=== PATIENT | male | born 1960 | race Caucasian/White ===

== ENCOUNTER 2018-10-31 19:54 | Emergency (ER) | payer OTHER ==
[~2018-10-31] VITALS: Ht 175.3 cm; Wt 100.0 kg
[~2018-10-31 19:54] MED LIST: ONDA8TAB9 PO
[2018-10-31 20:00] VITALS: BP 172/94
== END 2018-10-31 23:01 | disposition home or self-care (01) ==
LOC: ER 19:54
DX: S81.012A Laceration without foreign body, left knee, initial encounter (principal); E78.00 Pure hypercholesterolemia, unspecified; I10 Essential (primary) hypertension; G89.29 Other chronic pain; Z79.899 Other long term (current) drug therapy; W26.8XXA Contact with other sharp object(s), not elsewhere classified, initial encounter; Y93.89 Activity, other specified; Y92.89 Other specified places as the place of occurrence of the external cause; Y99.8 Other external cause status
CPT/HCPCS: 12002; 99283

== ENCOUNTER 2019-09-22 01:23 | Outpatient (CLI) | payer SELFPAY ==
[2019-09-22 09:58] LABS: CHOL/HDL RATIO 5.8 (0.00-4.99)
[2019-09-22 10:51] LABS: HEMOGLOBIN A1C 5.5 % (4.5-6.2)
== END 2019-09-22 23:59 | disposition home or self-care (01) ==
LOC: HW HEART 01:23
DX: Z13.6 Encounter for screening for cardiovascular disorders (principal)
CPT/HCPCS: 36415

== ENCOUNTER 2019-09-22 08:48 | Outpatient (CLI) | payer OTHER ==
[2019-09-22 09:29] LABS: MEAN CORPUSCULAR VOLUME 99.1 FL (78-98); WHITE BLOOD COUNT 5.3 X10'3 (4.5-11.0)
[2019-09-22 09:31] LABS: BASOPHILS # (AUTO) 0.1 X10'3 (0-0.2); BASOPHILS % (AUTO) 1.4 % (0-1); EOSINOPHILS # (AUTO) 0.4 X10'3 (0-0.9); EOSINOPHILS % (AUTO) 8.5 % (0-6); HEMATOCRIT 42.1 % (42.0-52.0); HEMOGLOBIN 14.7 g/dl (14.0-17.9); LYMPHOCYTES # (AUTO) 1.7 X10'3 (1.1-4.8); MEAN CORPUSCULAR HEMOGLOBIN 34.5 PG (27.0-31.0); MEAN CORPUSCULAR HGB CONC 34.8 g/dL (33.0-36.5); MEAN PLATELET VOLUME 7.5 FL (7.4-10.4); MONOCYTES # (AUTO) 0.4 X10'3 (0-0.9); MONOCYTES % (AUTO) 6.8 % (2-12); NEUTROPHILS # (AUTO) 2.7 X10'3 (1.8-7.7); NEUTROPHILS % (AUTO) 51.3 % (42-75); PLATELET COUNT 248 X10'3 (140-440); RED BLOOD COUNT 4.25 X10'6 (4.70-6.10); RED CELL DISTRIBUTION WIDTH 12.3 % (11.5-14.5)
[2019-09-22 11:16] LABS: ALANINE AMINOTRANSFERASE 58 U/L (12-78); ALBUMIN 3.8 G/DL (3.4-5.0); ALBUMIN/GLOBULIN RATIO 1.2 (1.1-1.5); ALKALINE PHOSPHATASE 84 IU/L (46-116); ANION GAP 10 (8-16); ASPARTATE AMINO TRANSFERASE 26 U/L (10-37); BILIRUBIN,TOTAL 0.7 MG/DL (0.1-1.0); BLOOD UREA NITROGEN 19 MG/DL (7-18); BUN/CREATININE RATIO 20.4 (5.4-32.0); CALCIUM 8.6 MG/DL (8.5-10.1); CHLORIDE 106 MMOL/L (99-107); CREATININE 0.93 MG/DL (0.60-1.10); GLUCOSE 106 MG/DL (70-104); POTASSIUM 4.3 MMOL/L (3.5-5.1); SODIUM 141 MMOL/L (135-145); TOTAL CARBON DIOXIDE 25.5 MMOL/L (24-32); TOTAL PROTEIN 7.1 G/DL (6.4-8.2); eGFR 83 ML/MIN
[2019-09-22 12:19] LABS: CLARITY,URINE CLEAR (Clear); COLOR,URINE YELLOW (Yellow); GLUCOSE, URINE NEGATIVE (Neg); KETONES,URINE NEGATIVE (Neg); LEUKOCYTE ESTERASE ,URINE NEGATIVE (Neg); NITRITES, URINE NEGATIVE (Neg); OCCULT BLOOD,URINE TRACE-INTACT (Neg); PROTEIN,URINE NEGATIVE (Neg); UA COLLECTION TYPE VOIDED; UROBILINOGEN,URINE 0.2 E.U/dL (0.2-1.0)
[2019-09-22 12:27] LABS: SQUAMOUS EPITHELIAL CELL,UR FEW /LPF (FEW)
[2019-09-22 12:29] LABS: BACTERIA,URINE FEW /HPF (Neg); RBC,URINE 0-2 /HPF (0-2); WBC,URINE 0-4 /HPF (0-4)
== END 2019-09-22 23:59 | disposition home or self-care (01) ==
LOC: LAB 08:48
PROVIDERS: ATTEND Family Medicine
DX: I10 Essential (primary) hypertension (principal)
CPT/HCPCS: 36415; 80053; 81001; 84402; 84403; 84439; 84443; 85025

== ENCOUNTER 2019-11-09 11:43 | Inpatient (IN) | payer OTHER ==
[~2019-11-09] VITALS: Ht 175.3 cm; Wt 102.7 kg
[2019-11-09 12:29] LABS: BASOPHILS # (AUTO) 0.1 X10'3 (0-0.2); BASOPHILS % (AUTO) 0.9 % (0-1); EOSINOPHILS # (AUTO) 0.3 X10'3 (0-0.9); EOSINOPHILS % (AUTO) 4.5 % (0-6); HEMOGLOBIN 15.9 g/dl (14.0-17.9); LYMPHOCYTES # (AUTO) 2.2 X10'3 (1.1-4.8); LYMPHOCYTES % (AUTO) 32.5 % (21-51); MEAN CORPUSCULAR HEMOGLOBIN 34.5 PG (27.0-31.0); MEAN CORPUSCULAR HGB CONC 34.5 g/dL (33.0-36.5); MEAN PLATELET VOLUME 7.2 FL (7.4-10.4); MONOCYTES # (AUTO) 0.5 X10'3 (0-0.9); MONOCYTES % (AUTO) 7.8 % (2-12); NEUTROPHILS # (AUTO) 3.7 X10'3 (1.8-7.7); NEUTROPHILS % (AUTO) 54.3 % (42-75); PLATELET COUNT 265 X10'3 (140-440); RED CELL DISTRIBUTION WIDTH 12.9 % (11.5-14.5); WHITE BLOOD COUNT 6.8 X10'3 (4.5-11.0)
[2019-11-09] MEDS ORDERED: aspirin 81mg tab.chew PO ONE (12:50)
[2019-11-09] MEDS ORDERED: nitroGLYCERIN 0.4mg SUBLingual tab SL PRN ×2 (12:50→15:05)
[2019-11-09 13:02] LABS: ALANINE AMINOTRANSFERASE 61 U/L (12-78); ALBUMIN 4.1 G/DL (3.4-5.0); ALBUMIN/GLOBULIN RATIO 1.1 (1.1-1.5); ALKALINE PHOSPHATASE 86 IU/L (46-116); ANION GAP 4 (8-16); ASPARTATE AMINO TRANSFERASE 28 U/L (10-37); BILIRUBIN,TOTAL 0.5 MG/DL (0.1-1.0); BLOOD UREA NITROGEN 25 MG/DL (7-18); BUN/CREATININE RATIO 23.6 (5.4-32.0); CALCIUM 9.2 MG/DL (8.5-10.1); CHLORIDE 103 MMOL/L (99-107); CREATININE 1.06 MG/DL (0.60-1.10); GLUCOSE 107 MG/DL (70-104); POTASSIUM 4.3 MMOL/L (3.5-5.1); SODIUM 137 MMOL/L (135-145); TOTAL PROTEIN 7.7 G/DL (6.4-8.2); eGFR 72 ML/MIN
[2019-11-09] MEDS ORDERED: metoprolol tartrate 1mg/ml inj IV ONE (13:25)
[2019-11-09] MEDS ORDERED: DEXT20TA6 PO (13:36)
[2019-11-09] MEDS ORDERED: DULO60CA65 PO (13:36)
[2019-11-09] MEDS ORDERED: RAMI10CA69 PO (13:36)
[2019-11-09] MEDS ORDERED: LORazepam 1 MG tablet PO ONE (14:25)
[2019-11-09 15:00] VITALS: BP 110/42
[2019-11-09] MEDS ORDERED: atorvastatin 20mg tablet PO STA (15:04)
[2019-11-09] MEDS ORDERED: aminophylline 250mg/10ml inj. IV PRN (15:05)
[2019-11-09] MEDS ORDERED: regadenoson 0.4mg/5ml syringe IV ONE (15:05)
[2019-11-09] MEDS ORDERED: magnesium 4gm in 100ml NS 100 ML IV PRN (15:15)
[2019-11-09] MEDS ORDERED: magnesium 2GM in 50ml NS 50 ML IV PRN (15:15)
[2019-11-09] MEDS ORDERED: mag hydrox/Alum hydrox/simeth 30ml oral suspension PO PRN (15:15)
[2019-11-09] MEDS ORDERED: ondansetron/PF 4mg/2ml inj IV PRN (15:15)
[2019-11-09] MEDS ORDERED: acetaminophen 325mg tablet PO PRN ×2 (15:15)
[2019-11-09] MEDS ORDERED: potassium Cl 20 mEq SR tablet PO PRN ×2 (15:15)
[2019-11-09] MEDS ORDERED: potassium CL 10mEq/100ml bag 100 ML IV PRN ×2 (15:15)
[2019-11-09] MEDS ORDERED: iohexol 350MG/ML 100ml bottle IV ONE (15:25)
--- NOTE | 2019-11-09 15:27 | NUR ---
PT TO CT
[2019-11-09] MEDS: normal saline 1000ml 1,000 ML IV SCH (15:31)
--- NOTE | 2019-11-09 15:59 | NUR ---
Patient in room ED 2. I have received report from ROCKY Nagy in ED and had the opportunity to ask questions.
[2019-11-09 16:10] VITALS: BP 141/92
--- NOTE | 2019-11-09 16:10 | NUR ---
Patient arrived from Ed, ambulated self to bed. Oriented to room. Non skid socks on. Bed locked and lowered. Hooked up to NS 100ml/hr per MD orders. Call light within reach, 2 RN skin check complete, first set of vitals done: BP141/92, HR 65, R 18, Temp 98.4, Pain 0/10. All patient's needs met at this time.
--- NOTE | 2019-11-09 18:15 | NUR ---
Patient in room [facility] 3010. I have received report from Christelle Rodriguez RN and had the opportunity to ask questions and assume patient care. Addendum: 11/10/19 at 0619 by Cheyenne Frost RN Report from Christelle Hidalgo RN.
--- NOTE | 2019-11-09 18:48 | NUR ---
Problems reprioritized. Patient report given, questions answered & plan of care reviewed with ROCKY Quinn. All patient needs met at this time.
[2019-11-09 19:00] VITALS: BP 132/89
[2019-11-09 20:00] VITALS: BP_SYST 137; BP_SYST 139; BP_SYST 163; BP_DIAS 90; BP_DIAS 97
[2019-11-09] MEDS: K and/or MAG REPLACEMENT MC SCH (20:00)
[2019-11-09] MEDS: docusate sod 100mg capsule PO SCH (20:00)
[2019-11-09] MEDS: heparin, porcine 5000 units/ml vial SQ SCH (22:15)
[2019-11-10] VITALS (11 sets, daily range): BP systolic 101–145; BP diastolic 65–97
[2019-11-10] MEDS: normal saline 1000ml 1,000 ML IV SCH (01:12)
[2019-11-10 01:18] LABS: BASOPHILS % (AUTO) 0.6 % (0-1); EOSINOPHILS # (AUTO) 0.3 X10'3 (0-0.9); EOSINOPHILS % (AUTO) 4.3 % (0-6); HEMATOCRIT 43.6 % (42.0-52.0); HEMOGLOBIN 15.2 g/dl (14.0-17.9); LYMPHOCYTES # (AUTO) 2.6 X10'3 (1.1-4.8); LYMPHOCYTES % (AUTO) 34.8 % (21-51); MEAN CORPUSCULAR HEMOGLOBIN 34.9 PG (27.0-31.0); MEAN CORPUSCULAR HGB CONC 34.8 g/dL (33.0-36.5); MEAN CORPUSCULAR VOLUME 100.4 FL (78-98); MEAN PLATELET VOLUME 7.5 FL (7.4-10.4); MONOCYTES # (AUTO) 0.5 X10'3 (0-0.9); MONOCYTES % (AUTO) 7.2 % (2-12); NEUTROPHILS # (AUTO) 3.9 X10'3 (1.8-7.7); NEUTROPHILS % (AUTO) 53.1 % (42-75); PLATELET COUNT 248 X10'3 (140-440); RED BLOOD COUNT 4.35 X10'6 (4.70-6.10); RED CELL DISTRIBUTION WIDTH 12.8 % (11.5-14.5); WHITE BLOOD COUNT 7.4 X10'3 (4.5-11.0)
[2019-11-10 01:32] LABS: ALANINE AMINOTRANSFERASE 51 U/L (12-78); ALBUMIN 3.6 G/DL (3.4-5.0); ALBUMIN/GLOBULIN RATIO 1.1 (1.1-1.5); ALKALINE PHOSPHATASE 78 IU/L (46-116); ANION GAP 6 (8-16); ASPARTATE AMINO TRANSFERASE 29 U/L (10-37); BILIRUBIN,TOTAL 0.4 MG/DL (0.1-1.0); BLOOD UREA NITROGEN 19 MG/DL (7-18); BUN/CREATININE RATIO 18.3 (5.4-32.0); CALCIUM 8.9 MG/DL (8.5-10.1); CHLORIDE 105 MMOL/L (99-107); CREATININE 1.04 MG/DL (0.60-1.10); GLUCOSE 100 MG/DL (70-104); POTASSIUM 3.7 MMOL/L (3.5-5.1); SODIUM 139 MMOL/L (135-145); TOTAL CARBON DIOXIDE 27.6 MMOL/L (24-32); eGFR 73 ML/MIN
--- NOTE | 2019-11-10 06:13 | NUR ---
Patient in room [facility] 3010. I have received report from ROCKY Quinn and had the opportunity to ask questions and assume patient care.
--- NOTE | 2019-11-10 06:17 | NUR ---
Problems reprioritized. Patient report given, questions answered & plan of care reviewed with Christelle Rodriguez RN. Addendum: 11/10/19 at 0618 by Cheyenne Frost RN Report to Christelle Hidalgo RN
[2019-11-10] MEDS: K and/or MAG REPLACEMENT MC SCH (08:00)
[2019-11-10] MEDS: docusate sod 100mg capsule PO SCH (08:00)
[2019-11-10] MEDS ORDERED: atorvastatin 20mg tablet PO SCH (08:00)
[2019-11-10] MEDS: heparin, porcine 5000 units/ml vial SQ SCH (09:00)
[2019-11-10] MEDS ORDERED: TEST200V10 IM (12:14)
[2019-11-10] MEDS ORDERED: ATOR20TA66 PO (13:28)
[2019-11-10] MEDS ORDERED: LEVO25TA7 PO (13:28)
--- NOTE | 2019-11-10 14:00 | NUR ---
Student documentation: I have reviewed and agree with all interventions, assessments performed and documented by Elvi from [facility].
--- NOTE | 2019-11-10 14:15 | NUR ---
Patient stable for discharge per MD orders. All instructions were gone over with patient and , all questions were answered. All belongings were collected and sent with patient. Patient will follow up with primary care provider in 2 week, and was informed to have a cholesterol panel, and also was informed to keep a log of blood pressures sitting and resting to take to the doctor appointment. PIV discontinued, cannula intact. Tele monitor discontinued, radiotelegraph operator notified. New prescriptions were e-sent to [facility] on [facility]. [facility] by .
--- NOTE | 2019-11-10 15:42 | NUR ---
Student Medication Administration: For this medication-pass time frame, all medication were reviewed, dispensed, administered and documented per hospital policy by Elvi from [facility].
== END 2019-11-10 14:15 | disposition home or self-care (01) | DRG 305 ==
LOC: ER 11:44 → ED HOLD 15:12 → PCU 3S 16:10
PROVIDERS: ADMIT Family Medicine; ATTEND Family Medicine
PROC: B3251ZZ Computerized Tomography (CT Scan) of Bilateral Common Carotid Arteries using Low Osmolar Contrast (ICD-10-PCS; principal; 2019-11-09)
PROC: B32G1ZZ Computerized Tomography (CT Scan) of Bilateral Vertebral Arteries using Low Osmolar Contrast (ICD-10-PCS; 2019-11-09)
PROC: B3281ZZ Computerized Tomography (CT Scan) of Bilateral Internal Carotid Arteries using Low Osmolar Contrast (ICD-10-PCS; 2019-11-09)
PROC: 4A02XM4 Measurement of Cardiac Total Activity, External Approach (ICD-10-PCS; 2019-11-10)
DX: I16.1 Hypertensive emergency (principal); R47.01 Aphasia; R55 Syncope and collapse; E03.9 Hypothyroidism, unspecified; E78.00 Pure hypercholesterolemia, unspecified; E29.0 Testicular hyperfunction; E78.5 Hyperlipidemia, unspecified; F90.9 Attention-deficit hyperactivity disorder, unspecified type; I10 Essential (primary) hypertension; I20.9 Angina pectoris, unspecified; G89.29 Other chronic pain; M54.9 Dorsalgia, unspecified; Z80.0 Family history of malignant neoplasm of digestive organs; Z79.899 Other long term (current) drug therapy
CPT/HCPCS: 36415; 70496; 70498; 70551; 71045; 78452; 80053; 83605; 83735; 83880; 84443; 84484; 85025; 85651; 87040; 87081; 93005; 93017; 93306; A9500; G0378; J1644; J2785; J3490; J7030; Q9967

== ENCOUNTER 2020-02-07 11:35 | Outpatient (CLI) | payer OTHER ==
[~2020-02-07 11:35] MED LIST changes: +ATOR20TA66 PO; +DULO60CA65 PO; +LEVO25TA7 PO; -ONDA8TAB9 PO; +RAMI10CA69 PO
== END 2020-02-07 23:59 | disposition home or self-care (01) ==
LOC: LAB 11:35
PROVIDERS: ATTEND Family Medicine
DX: Z00.00 Encounter for general adult medical examination without abnormal findings (principal)
CPT/HCPCS: 36415; 84439; 84443

== ENCOUNTER 2021-03-23 19:33 | Emergency (ER) | payer BC, OTHER ==
[~2021-03-23] VITALS: Ht 175.3 cm; Wt 100.0 kg
[2021-03-23 19:43] VITALS: BP 178/111
[2021-03-23 19:51] LABS: BASOPHILS # (AUTO) 0.1 X10'3 (0-0.2); EOSINOPHILS # (AUTO) 0.1 X10'3 (0-0.9); LYMPHOCYTES # (AUTO) 2.4 X10'3 (1.1-4.8); MEAN CORPUSCULAR HEMOGLOBIN 36.4 PG (27.0-31.0); MEAN PLATELET VOLUME 7.4 FL (7.4-10.4); MONOCYTES # (AUTO) 0.6 X10'3 (0-0.9); WHITE BLOOD COUNT 9.3 X10'3 (4.5-11.0)
[2021-03-23 19:53] LABS: BASOPHILS % (AUTO) 0.7 % (0-1); EOSINOPHILS % (AUTO) 1.6 % (0-6); HEMATOCRIT 50.9 % (42.0-52.0); HEMOGLOBIN 17.3 g/dl (14.0-17.9); LYMPHOCYTES % (AUTO) 26.4 % (21-51); MONOCYTES % (AUTO) 6.2 % (2-12); NEUTROPHILS % (AUTO) 65.1 % (42-75); PLATELET COUNT 278 X10'3 (140-440); RED BLOOD COUNT 4.76 X10'6 (4.70-6.10); RED CELL DISTRIBUTION WIDTH 13.9 % (11.5-14.5)
[2021-03-23 20:06] LABS: ALANINE AMINOTRANSFERASE 63 U/L (12-78); ALKALINE PHOSPHATASE 96 IU/L (46-116); ANION GAP 8 (8-16); ASPARTATE AMINO TRANSFERASE 34 U/L (10-37); BILIRUBIN,TOTAL 0.8 MG/DL (0.1-1.0); BLOOD UREA NITROGEN 16 MG/DL (7-18); BUN/CREATININE RATIO 14.3 (5.4-32.0); CALCIUM 8.8 MG/DL (8.5-10.1); CHLORIDE 100 MMOL/L (99-107); CREATININE 1.12 MG/DL (0.60-1.10); GLUCOSE 146 MG/DL (70-104); POTASSIUM 3.6 MMOL/L (3.5-5.1); SODIUM 136 MMOL/L (135-145); TOTAL CARBON DIOXIDE 27.9 MMOL/L (24-32); TOTAL PROTEIN 7.9 G/DL (6.4-8.2); eGFR 67 ML/MIN
[2021-03-23] MEDS ORDERED: ondansetron/PF 4mg/2ml inj IV ONE (20:10)
[2021-03-23] MEDS ORDERED: normal saline 1000ml 1,000 ML IV ONE (20:10)
[2021-03-23] MEDS ORDERED: LORazepam 2 mg/ml vial IV ONE (20:10)
[2021-03-23] MEDS ORDERED: normal saline 1000ML IV soln IVB ONE (20:10)
[2021-03-23] MEDS ORDERED: ONDA4TAB12 PO ×2 (21:04→21:06)
[2021-03-23] MEDS ORDERED: MECL-159 PO (21:06)
[2021-03-24] MEDS ORDERED: AMLO2.5T2 PO (20:45)
== END 2021-03-23 22:33 | disposition home or self-care (01) ==
LOC: ER 19:34
DX: E86.0 Dehydration (principal); R42 Dizziness and giddiness; R11.2 Nausea with vomiting, unspecified; R07.89 Other chest pain; E78.00 Pure hypercholesterolemia, unspecified; I10 Essential (primary) hypertension; G89.29 Other chronic pain; Z72.89 Other problems related to lifestyle; Z79.899 Other long term (current) drug therapy
CPT/HCPCS: 70450; 71045; 80053; 83735; 83880; 84484; 85025; 93005; 96361; 96374; 96375; 99285; J2060; J2405; J7030

== ENCOUNTER 2021-03-24 16:47 | Emergency (ER) | payer BC ==
[~2021-03-24] VITALS: Ht 175.3 cm; Wt 100.0 kg
[~2021-03-24 16:47] MED LIST changes: +MECL-159 PO; +ONDA4TAB12 PO
--- NOTE | 2021-03-24 19:14 | NUR ---
PT TO MRI
[2021-03-24] MEDS ORDERED: AMLO2.5T2 PO (20:45)
[2021-03-24 20:56] VITALS: BP 146/95
== END 2021-03-24 20:59 | disposition home or self-care (01) ==
LOC: ER 16:47
DX: I10 Essential (primary) hypertension (principal); H55.00 Unspecified nystagmus; G89.29 Other chronic pain; M54.9 Dorsalgia, unspecified; E78.00 Pure hypercholesterolemia, unspecified
CPT/HCPCS: 70551; 99284

== ENCOUNTER 2021-09-30 08:04 | Outpatient (CLI) | payer BC ==
[2021-09-30 08:54] LABS: BASOPHILS # (AUTO) 0.1 X10'3 (0-0.2); BASOPHILS % (AUTO) 0.9 % (0-1); EOSINOPHILS # (AUTO) 0.2 X10'3 (0-0.9); EOSINOPHILS % (AUTO) 2.5 % (0-6); HEMATOCRIT 45.4 % (42.0-52.0); HEMOGLOBIN 15.9 g/dl (14.0-17.9); LYMPHOCYTES # (AUTO) 1.7 X10'3 (1.1-4.8); LYMPHOCYTES % (AUTO) 28.5 % (21-51); MEAN PLATELET VOLUME 7.5 FL (7.4-10.4); MONOCYTES # (AUTO) 0.4 X10'3 (0-0.9); MONOCYTES % (AUTO) 7.2 % (2-12); NEUTROPHILS # (AUTO) 3.7 X10'3 (1.8-7.7); NEUTROPHILS % (AUTO) 60.9 % (42-75); PLATELET COUNT 228 X10'3 (140-440); RED CELL DISTRIBUTION WIDTH 12.8 % (11.5-14.5)
[2021-09-30 09:07] LABS: CLARITY,URINE CLEAR (Clear); COLOR,URINE YELLOW (Yellow); GLUCOSE, URINE NEGATIVE (Neg); KETONES,URINE NEGATIVE (Neg); LEUKOCYTE ESTERASE ,URINE NEGATIVE (Neg); NITRITES, URINE NEGATIVE (Neg); OCCULT BLOOD,URINE SMALL (Neg); PROTEIN,URINE TRACE mg/dl (Neg); UROBILINOGEN,URINE 0.2 E.U/dL (0.2-1.0)
[2021-09-30 09:10] LABS: UA COLLECTION TYPE CLN CATCH MIDSTREAM
[2021-09-30 09:13] LABS: BACTERIA,URINE NONE SEEN /HPF (Neg); RBC,URINE 0-2 /HPF (0-2); SQUAMOUS EPITHELIAL CELL,UR NONE SEEN /LPF (FEW); WBC,URINE NONE SEEN /HPF (0-4)
[2021-09-30 09:24] LABS: ALANINE AMINOTRANSFERASE 50 U/L (12-78); ALBUMIN 3.7 G/DL (3.4-5.0); ALKALINE PHOSPHATASE 90 IU/L (46-116); ANION GAP 0 (8-16); ASPARTATE AMINO TRANSFERASE 26 U/L (10-37); BILIRUBIN,TOTAL 0.6 MG/DL (0.1-1.0); BLOOD UREA NITROGEN 17 MG/DL (7-18); BUN/CREATININE RATIO 17.2 (5.4-32.0); CALCIUM 8.7 MG/DL (8.5-10.1); CHLORIDE 100 MMOL/L (99-107); CHOL/HDL RATIO 5.5 (0.00-4.99); CHOLESTEROL 264 MG/DL (0-200); CREATININE 0.99 MG/DL (0.60-1.10); GLUCOSE 121 MG/DL (70-104); HDL CHOLESTEROL 48 MG/DL (35-60); LDL CHOLESTEROL 173 MG/DL (50-100); SODIUM 131 MMOL/L (135-145); TOTAL CARBON DIOXIDE 30.7 MMOL/L (24-32); TOTAL PROTEIN 7.3 G/DL (6.4-8.2); TRIGLYCERIDES 165 MG/DL (20-135); eGFR 77 ML/MIN
== END 2021-09-30 23:59 | disposition home or self-care (01) ==
LOC: LAB 08:04
PROVIDERS: ATTEND Family Medicine
DX: Z00.01 Encounter for general adult medical examination with abnormal findings (principal); I10 Essential (primary) hypertension; E29.1 Testicular hypofunction; E34.9 Endocrine disorder, unspecified
CPT/HCPCS: 36415; 80053; 80061; 81001; 84402; 84403; 84439; 84443; 85025

== ENCOUNTER 2021-11-14 10:39 | Emergency (ER) | payer BC ==
[~2021-11-14] VITALS: Ht 175.3 cm; Wt 110.0 kg
[2021-11-14 11:05] LABS: BASOPHILS # (AUTO) 0.1 X10'3 (0-0.2); BASOPHILS % (AUTO) 0.6 % (0-1); EOSINOPHILS # (AUTO) 0.2 X10'3 (0-0.9); EOSINOPHILS % (AUTO) 1.1 % (0-6); HEMATOCRIT 44.5 % (42.0-52.0); HEMOGLOBIN 15.2 g/dl (14.0-17.9); LYMPHOCYTES # (AUTO) 1.9 X10'3 (1.1-4.8); LYMPHOCYTES % (AUTO) 13.3 % (21-51); MEAN CORPUSCULAR HEMOGLOBIN 34.4 PG (27.0-31.0); MEAN CORPUSCULAR HGB CONC 34.1 g/dL (33.0-36.5); MEAN CORPUSCULAR VOLUME 100.8 FL (78-98); MEAN PLATELET VOLUME 7.2 FL (7.4-10.4); MONOCYTES # (AUTO) 0.7 X10'3 (0-0.9); MONOCYTES % (AUTO) 4.8 % (2-12); NEUTROPHILS # (AUTO) 11.4 X10'3 (1.8-7.7); NEUTROPHILS % (AUTO) 80.2 % (42-75); PLATELET COUNT 256 X10'3 (140-440); RED BLOOD COUNT 4.41 X10'6 (4.70-6.10); RED CELL DISTRIBUTION WIDTH 12.9 % (11.5-14.5); WHITE BLOOD COUNT 14.2 X10'3 (4.5-11.0)
[2021-11-14 11:28] LABS: ALANINE AMINOTRANSFERASE 43 U/L (12-78); ALBUMIN 3.5 G/DL (3.4-5.0); ALBUMIN/GLOBULIN RATIO 0.8 (1.1-1.5); ALKALINE PHOSPHATASE 88 IU/L (46-116); ANION GAP 8 (8-16); ASPARTATE AMINO TRANSFERASE 22 U/L (10-37); BILIRUBIN,TOTAL 1.5 MG/DL (0.1-1.0); BLOOD UREA NITROGEN 13 MG/DL (7-18); BUN/CREATININE RATIO 11.9 (5.4-32.0); CHLORIDE 101 MMOL/L (99-107); CREATININE 1.09 MG/DL (0.60-1.10); GLUCOSE 101 MG/DL (70-104); POTASSIUM 3.7 MMOL/L (3.5-5.1); SODIUM 139 MMOL/L (135-145); TOTAL PROTEIN 7.9 G/DL (6.4-8.2); eGFR 69 ML/MIN
[2021-11-14 11:32] LABS: CALCIUM 8.8 MG/DL (8.5-10.1)
[2021-11-14] MEDS ORDERED: normal saline 1000ML IV soln IVB ONE (11:35)
[2021-11-14 11:36] LABS: LIPASE 1723 U/L (73-393)
[2021-11-14] MEDS ORDERED: iohexol 300mg/ml 100ml inj. ONE (11:51)
[2021-11-14 11:57] VITALS: BP 132/89
--- NOTE | 2021-11-14 12:04 | NUR ---
PIV STARTED, PT TO CT.
[2021-11-14] MEDS ORDERED: ketorolac trometh. 30mg/ml inj. IV ONE (12:15)
[2021-11-14] MEDS ORDERED: morphine 4 MG/ML inj SYRINge IV ONE (12:15)
--- NOTE | 2021-11-14 12:17 | NUR ---
RETURNED FROM CT WITHOUT INCIDENT.
[2021-11-14] MEDS ORDERED: piperacillin/tazo 3.375gm/50ml 50 ML IV ONE (12:45)
[2021-11-14] MEDS ORDERED: AMOX-117 PO (12:55)
[2021-11-14] MEDS ORDERED: ONDA4TAB12 PO (12:55)
[2021-11-14] MEDS ORDERED: HYDR-3965 PO (12:55)
== END 2021-11-14 14:10 | disposition home or self-care (01) ==
LOC: ER 10:39
DX: K57.92 Diverticulitis of intestine, part unspecified, without perforation or abscess without bleeding (principal); K85.90 Acute pancreatitis without necrosis or infection, unspecified; R10.31 Right lower quadrant pain; R30.9 Painful micturition, unspecified; R11.0 Nausea; E78.00 Pure hypercholesterolemia, unspecified; I10 Essential (primary) hypertension; G89.29 Other chronic pain; Z72.89 Other problems related to lifestyle; Z79.2 Long term (current) use of antibiotics; Z79.899 Other long term (current) drug therapy
CPT/HCPCS: 36415; 71045; 74177; 80053; 83690; 85025; 93005; 96365; 96375; 99285; J1885; J2270; J2543; J7030; Q9967

== ENCOUNTER 2022-02-04 16:43 | Emergency (ER) | payer BC ==
[~2022-02-04] VITALS: Ht 175.3 cm; Wt 105.0 kg
[2022-02-04 16:48] VITALS: BP 140/92
[2022-02-04] MEDS ORDERED: HYDROcodone/acetaminophen 10/325mg tab PO ONE (19:15)
[2022-02-04] MEDS ORDERED: HYDR-3965 PO (19:40)
== END 2022-02-04 19:56 | disposition home or self-care (01) ==
LOC: ER 16:44
DX: S82.832A Other fracture of upper and lower end of left fibula, initial encounter for closed fracture (principal); S02.85XA Fracture of orbit, unspecified, initial encounter for closed fracture; S89.92XA Unspecified injury of left lower leg, initial encounter; E78.00 Pure hypercholesterolemia, unspecified; I10 Essential (primary) hypertension; G89.29 Other chronic pain; Z72.89 Other problems related to lifestyle; Z79.899 Other long term (current) drug therapy; V89.2XXA Person injured in unspecified motor-vehicle accident, traffic, initial encounter; Y93.89 Activity, other specified; Y92.488 Other paved roadways as the place of occurrence of the external cause; Y99.8 Other external cause status
CPT/HCPCS: 73700; 99284

== ENCOUNTER → 2022-02-12 | Day surgery (SDC) | payer BC ==
[~2022-02-12] VITALS: Ht 175.3 cm; Wt 94.5 kg
[2022-02-12] VITALS (10 sets, daily range): BP systolic 86–129; BP diastolic 51–84
[~2022-02-12] MED LIST changes: -ATOR20TA66 PO; +DULO-31 PO; -DULO60CA65 PO; +HYDR12.55 PO; -LEVO25TA7 PO; -MECL-159 PO; -ONDA4TAB12 PO; +ROPIVAcaine 0.5% (5mg/ml) 30ml vial ONE; +bacitracin 15gm ointment TP ONE; +ceFAZolin inj. 2,000 MG in dextrose 5%-water 100 ML IV ONE; +dexamethasone sod phosphate 10mg/ml inj ONE; +ePHEDrine 50MG/ML INJ. ONE; +famotidine 20mg tablet PO ONE; +fentaNYL/PF 50MCG/1 ML 2ML syringe ONE; +meperidine/PF 25mg/ml syringe IV PRN; +midazolam 1 mg/ML 2ml injection ONE; +morphine 2 MG/ML inj. syringe IV PRN; +morphine 4 MG/ML inj SYRINge IV PRN; +ondansetron/PF 4mg/2ml inj IV PRN; +ondansetron/PF 4mg/2ml inj ONE; +proCHLORperazine 10 MG/2 ml inj IV PRN; +propofol inj 20 ML IV ONE; +ringers solution, lacted 1,000 ML IV SCH; +sevoflurane 250ml liquid IH ONE; +vancomycin 1,000mg inj ONE
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
[2022-02-12 13:41] LABS: ALBUMIN 3.7 G/DL (3.4-5.0); ALBUMIN/GLOBULIN RATIO 0.8 (1.1-1.5); ALKALINE PHOSPHATASE 95 IU/L (46-116); BASOPHILS # (AUTO) 0.1 X10'3 (0-0.2); BASOPHILS % (AUTO) 1.3 % (0-1); BLOOD UREA NITROGEN 26 MG/DL (7-18); BUN/CREATININE RATIO 22.8 (5.4-32.0); CALCIUM 9.1 MG/DL (8.5-10.1); CHLORIDE 102 MMOL/L (99-107); CREATININE 1.14 MG/DL (0.60-1.10); EOSINOPHILS # (AUTO) 0.1 X10'3 (0-0.9); EOSINOPHILS % (AUTO) 1.3 % (0-6); LYMPHOCYTES % (AUTO) 21.3 % (21-51); MEAN CORPUSCULAR HEMOGLOBIN 33.9 PG (27.0-31.0); MEAN CORPUSCULAR HGB CONC 34.1 g/dL (33.0-36.5); MEAN CORPUSCULAR VOLUME 99.6 FL (78-98); MEAN PLATELET VOLUME 7.5 FL (7.4-10.4); MONOCYTES # (AUTO) 0.6 X10'3 (0-0.9); MONOCYTES % (AUTO) 6.6 % (2-12); NEUTROPHILS # (AUTO) 6.6 X10'3 (1.8-7.7); NEUTROPHILS % (AUTO) 69.5 % (42-75); PRE OP ALT 40 U/L (30-65); PRE OP ANION GAP 9 (8-16); PRE OP AST 28 U/L (10-37); PRE OP BILIRUB, TOTAL 0.8 MG/DL (0.0-1.0); PRE OP GLUCOSE 99 MG/DL (70-104); PRE OP HEMATOCRIT 40.9 % (42.0-52.0); PRE OP HEMOGLOBIN 13.9 g/dL (14.0-17.9); PRE OP PLATELET COUNT 474 X10'3 (140-440); PRE OP SODIUM 138 MMOL/L (135-145); RED BLOOD COUNT 4.11 X10'6 (4.70-6.10); TOTAL CARBON DIOXIDE 27.4 MMOL/L (24-32); TOTAL PROTEIN 8.1 G/DL (6.4-8.2); eGFR 65 ML/MIN
[2022-02-12 13:51] LABS: PRE OP POTASSIUM 4.4 MMOL/L (3.4-5.1)
--- NOTE | 2022-02-12 17:20 | NUR ---
Received from OR via [facility] , accompanied by Anesthesiologist: DR WHALEN and report given by Anesthesiolgist. VSS, IV IN LEFT HAND 20G. DRESSING WITH NOLVIA BANDAGE ON LEFT ANKLE AND FOOT CDI. LEG ELEVATED WITH FOAM ELEVATOR AND ICED.
--- NOTE | 2022-02-12 18:30 | NUR ---
PATIENT MEETS DISCHARGE CRITERIA. VSS. IV DC'D NO COMPLICATIONS. PATIENT STATES NO PAIN IN HIS LEG. HE EASILY TRANSFERRED TO HIS CHAIR WITHOUT BEARING WEIGHT ON AFFECTED LEG. WHEELED PATIENT, FOAM ELEVATOR, AND CRUTCHES TO HIS CAR.
== END | disposition home or self-care (01) ==
LOC: PAS 12:15
PROVIDERS: ATTEND Podiatrist Foot & Ankle Surgery
DX: S82.62XA Displaced fracture of lateral malleolus of left fibula, initial encounter for closed fracture (principal); M17.12 Unilateral primary osteoarthritis, left knee; I10 Essential (primary) hypertension; G89.29 Other chronic pain; F32.A Depression, unspecified; G89.18 Other acute postprocedural pain; Z72.89 Other problems related to lifestyle; E66.9 Obesity, unspecified; Z68.30 Body mass index [BMI] 30.0-30.9, adult; Z79.899 Other long term (current) drug therapy; X58.XXXA Exposure to other specified factors, initial encounter; Y93.89 Activity, other specified; Y92.89 Other specified places as the place of occurrence of the external cause; Y99.8 Other external cause status
CPT/HCPCS: 27792; 36415; 64445; 64447; 73600; 76000; 76942; 80053; 82948; 85025; A6223; C1713; J0690; J1100; J2250; J2405; J2704; J2795; J3010; J3370; J3490; J7030; J7060; J7120; Z7506; Z7508; A4618; A6253; A6449; A7000; C1769

== ENCOUNTER 2023-06-10 19:20 | Inpatient (IN) | payer BC, OTHER ==
[~2023-06-10] VITALS: Ht 175.3 cm; Wt 100.0 kg
[~2023-06-10 19:20] MED LIST changes: -ROPIVAcaine 0.5% (5mg/ml) 30ml vial ONE; -bacitracin 15gm ointment TP ONE; -ceFAZolin inj. 2,000 MG in dextrose 5%-water 100 ML IV ONE; -dexamethasone sod phosphate 10mg/ml inj ONE; -ePHEDrine 50MG/ML INJ. ONE; -famotidine 20mg tablet PO ONE; -fentaNYL/PF 50MCG/1 ML 2ML syringe ONE; -meperidine/PF 25mg/ml syringe IV PRN; -midazolam 1 mg/ML 2ml injection ONE; -morphine 2 MG/ML inj. syringe IV PRN; -morphine 4 MG/ML inj SYRINge IV PRN; -ondansetron/PF 4mg/2ml inj IV PRN; -ondansetron/PF 4mg/2ml inj ONE; -proCHLORperazine 10 MG/2 ml inj IV PRN; -propofol inj 20 ML IV ONE; -ringers solution, lacted 1,000 ML IV SCH; -sevoflurane 250ml liquid IH ONE; -vancomycin 1,000mg inj ONE
[2023-06-10 19:41] LABS: BASOPHILS # (AUTO) 0.1 X10'3 (0-0.2); EOSINOPHILS # (AUTO) 0.2 X10'3 (0-0.9); EOSINOPHILS % (AUTO) 1.6 % (0-6); HEMATOCRIT 51.9 % (42.0-52.0); HEMOGLOBIN 17.8 g/dl (14.0-17.9); LYMPHOCYTES % (AUTO) 20.6 % (21-51); MEAN CORPUSCULAR HEMOGLOBIN 37.3 PG (27.0-31.0); MEAN CORPUSCULAR HGB CONC 34.3 g/dL (33.0-36.5); MEAN CORPUSCULAR VOLUME 108.5 FL (78-98); MEAN PLATELET VOLUME 7.5 FL (7.4-10.4); MONOCYTES # (AUTO) 0.7 X10'3 (0-0.9); MONOCYTES % (AUTO) 6.8 % (2-12); NEUTROPHILS # (AUTO) 6.9 X10'3 (1.8-7.7); PLATELET COUNT 259 X10'3 (140-440); RED BLOOD COUNT 4.78 X10'6 (4.70-6.10); RED CELL DISTRIBUTION WIDTH 14.5 % (11.5-14.5); WHITE BLOOD COUNT 9.8 X10'3 (4.5-11.0)
[2023-06-10 19:55] LABS: ALANINE AMINOTRANSFERASE 77 U/L (12-78); ALBUMIN 4.1 G/DL (3.4-5.0); ALBUMIN/GLOBULIN RATIO 1.1 (1.1-1.5); ALKALINE PHOSPHATASE 95 IU/L (46-116); ANION GAP 4 (8-16); ASPARTATE AMINO TRANSFERASE 45 U/L (10-37); BILIRUBIN,TOTAL 0.6 MG/DL (0.1-1.0); BLOOD UREA NITROGEN 20 MG/DL (7-18); BUN/CREATININE RATIO 14.7 (10.0-20.0); CALCIUM 9.9 MG/DL (8.5-10.1); CHLORIDE 101 MMOL/L (99-107); CREATININE 1.36 MG/DL (0.60-1.10); GLUCOSE 88 MG/DL (70-104); POTASSIUM 3.9 MMOL/L (3.5-5.1); SODIUM 140 MMOL/L (135-145); TOTAL CARBON DIOXIDE 35.2 MMOL/L (24-32); TOTAL PROTEIN 7.9 G/DL (6.4-8.2); eCRCL 56 ML/MIN; eGFR 53 ML/MIN
[2023-06-10 20:02] LABS: PRO BRAIN NATRIURETIC PEPTIDE 94 PG/ML (0-125)
[2023-06-10 20:21] LABS: LARGE PLATELETS FEW; PLATELET ESTIMATE NORMAL; STOMATOCYTES 1+
[2023-06-10] MEDS ORDERED: AMPH20TA3 PO (23:09)
[2023-06-10] MEDS ORDERED: aspirin 81mg tab.chew PO ONE (23:10)
[2023-06-10] MEDS ORDERED: heparin 10,000 units/1 ML INJ IV PRN (23:15)
[2023-06-10] MEDS ORDERED: heparin 10,000 units/1 ML INJ IV ONE ×2 (23:15)
[2023-06-10] MEDS ORDERED: heparin 25,000 UNIT/250ml bag 250 ML IV PRN (23:15)
[2023-06-10] MEDS ORDERED: normal saline 1000ml 1,000 ML IV ONE (23:15)
[2023-06-10] MEDS: aspirin 81mg, enteric-coated 1 TAB TABLET.DR PO SCH (23:20)
[2023-06-10] MEDS ORDERED: morphine 2 MG/ML inj. syringe IV PRN ×2 (23:20)
[2023-06-10] MEDS ORDERED: magnesium hydroxide 30ml (MOM) UD suspension PO PRN (23:20)
[2023-06-10] MEDS ORDERED: ondansetron/PF 4mg/2ml inj IV PRN (23:20)
[2023-06-10] MEDS ORDERED: magnesium Cl slow-release 64mg tablet PO PRN (23:20)
[2023-06-10] MEDS ORDERED: mag hydrox/Alum hydrox/simeth 30ml oral suspension PO PRN (23:20)
[2023-06-10] MEDS ORDERED: potassium Cl 20 mEq SR tablet PO PRN ×2 (23:20)
[2023-06-10] MEDS ORDERED: potassium Cl 40MEQ/1/2NS 520ml 520 ML IV PRN (23:20)
[2023-06-10] MEDS ORDERED: magnesium 2GM in 50ml NS 50 ML IV PRN (23:20)
[2023-06-10] MEDS ORDERED: acetaminophen 325mg tablet PO PRN (23:20)
[2023-06-10] MEDS ORDERED: magnesium 4gm in 100ml NS 100 ML IV PRN (23:20)
[2023-06-10] MEDS: atorvastatin 20mg tablet PO SCH (23:20)
[2023-06-10] MEDS ORDERED: iohexol 350MG/ML 100ml bottle IV ONE (23:33)
[2023-06-10 23:41] LABS: BASOPHILS # (AUTO) 0.1 X10'3 (0-0.2); EOSINOPHILS # (AUTO) 0.2 X10'3 (0-0.9); EOSINOPHILS % (AUTO) 1.9 % (0-6); HEMOGLOBIN 16.6 g/dl (14.0-17.9); LYMPHOCYTES # (AUTO) 1.7 X10'3 (1.1-4.8); LYMPHOCYTES % (AUTO) 20.6 % (21-51); MEAN CORPUSCULAR HEMOGLOBIN 37.1 PG (27.0-31.0); MEAN CORPUSCULAR VOLUME 109.1 FL (78-98); MEAN PLATELET VOLUME 7.7 FL (7.4-10.4); MONOCYTES # (AUTO) 0.6 X10'3 (0-0.9); MONOCYTES % (AUTO) 7.5 % (2-12); NEUTROPHILS # (AUTO) 5.7 X10'3 (1.8-7.7); PLATELET COUNT 235 X10'3 (140-440); RED BLOOD COUNT 4.49 X10'6 (4.70-6.10); RED CELL DISTRIBUTION WIDTH 14.5 % (11.5-14.5); WHITE BLOOD COUNT 8.3 X10'3 (4.5-11.0)
[2023-06-10 23:55] LABS: APTT 29 SECONDS (22-32); PROTHROMBIN TIME 10.9 SECONDS (9.0-12.0)
[2023-06-11] VITALS (12 sets, daily range): BP systolic 132–157; BP diastolic 84–112; PULSE 44–56; RESP 12–18; TEMP 98; O2SAT 94–100
[2023-06-11 06:13] LABS: BASOPHILS # (AUTO) 0.1 X10'3 (0-0.2); BASOPHILS % (AUTO) 1.2 % (0-1); EOSINOPHILS # (AUTO) 0.2 X10'3 (0-0.9); EOSINOPHILS % (AUTO) 3.1 % (0-6); HEMATOCRIT 47.9 % (42.0-52.0); HEMOGLOBIN 16.2 g/dl (14.0-17.9); LYMPHOCYTES # (AUTO) 2.1 X10'3 (1.1-4.8); LYMPHOCYTES % (AUTO) 32.3 % (21-51); MEAN CORPUSCULAR HEMOGLOBIN 36.8 PG (27.0-31.0); MEAN CORPUSCULAR HGB CONC 33.9 g/dL (33.0-36.5); MEAN CORPUSCULAR VOLUME 108.8 FL (78-98); MEAN PLATELET VOLUME 7.8 FL (7.4-10.4); MONOCYTES # (AUTO) 0.5 X10'3 (0-0.9); MONOCYTES % (AUTO) 8.6 % (2-12); NEUTROPHILS # (AUTO) 3.5 X10'3 (1.8-7.7); NEUTROPHILS % (AUTO) 54.8 % (42-75); PLATELET COUNT 218 X10'3 (140-440); RED BLOOD COUNT 4.41 X10'6 (4.70-6.10); RED CELL DISTRIBUTION WIDTH 14.3 % (11.5-14.5); WHITE BLOOD COUNT 6.4 X10'3 (4.5-11.0)
[2023-06-11 06:29] LABS: ALANINE AMINOTRANSFERASE 57 U/L (12-78); ALBUMIN 3.3 G/DL (3.4-5.0); ALKALINE PHOSPHATASE 79 IU/L (46-116); ANION GAP 4 (8-16); ASPARTATE AMINO TRANSFERASE 38 U/L (10-37); BLOOD UREA NITROGEN 22 MG/DL (7-18); BUN/CREATININE RATIO 21.4 (10.0-20.0); CALCIUM 8.9 MG/DL (8.5-10.1); CHLORIDE 104 MMOL/L (99-107); CREATININE 1.03 MG/DL (0.60-1.10); GLUCOSE 112 MG/DL (70-104); MAGNESIUM 2.1 MG/DL (1.5-2.4); POTASSIUM 3.6 MMOL/L (3.5-5.1); SODIUM 136 MMOL/L (135-145); TOTAL CARBON DIOXIDE 27.8 MMOL/L (24-32); TOTAL PROTEIN 6.6 G/DL (6.4-8.2); eCRCL 74 ML/MIN; eGFR 73 ML/MIN
[2023-06-11] MEDS ORDERED: metoprolol tartrate 1mg/ml inj IV PRN ×2 (07:55→08:15)
[2023-06-11] MEDS ORDERED: nitroGLYCERIN 0.4mg SUBLingual tab SL PRN ×2 (07:55→08:15)
[2023-06-11] MEDS ORDERED: aminophylline 250mg/10ml inj. IV PRN ×2 (07:55→08:15)
[2023-06-11] MEDS ORDERED: regadenoson 0.4mg/5ml syringe IV PRN ×2 (07:55→08:15)
[2023-06-11] MEDS: K and/or MAG REPLACEMENT MC SCH ×2 (08:00→20:00)
[2023-06-11] MEDS ORDERED: aspirin 81mg, enteric-coated 1 TAB TABLET.DR PO SCH (08:25)
[2023-06-11] MEDS ORDERED: atorvastatin 20mg tablet PO SCH (08:25)
[2023-06-11] MEDS: dextroamphetamine/amphetamine 5mg tablet PO SCH (08:34)
[2023-06-11] MEDS: lisinopril 20mg tablet PO SCH (08:57)
[2023-06-11] MEDS: aspirin 81mg, enteric-coated 1 TAB TABLET.DR PO SCH (08:57)
[2023-06-11] MEDS: metoprolol tartrate 50mg tablet PO SCH ×2 (08:57→20:00)
[2023-06-11] MEDS: docusate sod 100mg capsule PO SCH ×2 (08:57→21:23)
[2023-06-11] MEDS: HYDROchlorothiazide 12.5mg capsule PO SCH (08:58)
[2023-06-11] MEDS: duloxetine 30mg CAPSULE.DR PO SCH (08:58)
[2023-06-11] MEDS: atorvastatin 20mg tablet PO SCH (08:58)
--- NOTE | 2023-06-11 09:34 | NUR ---
PT IS SCHEDULED FOR STRESS TEST, TEST IS ON HOLD TROPONINS HAVE INCREASED, PRIMARY NURSE HAS PAGED HOSPITALIST
--- NOTE | 2023-06-11 09:46 | NUR ---
Contacted hospitalist Dr. Mims and informed MD pt Troponin now 820. Stress test to be held per VO Dr. Mims
--- NOTE | 2023-06-11 11:35 | NUR ---
RECEIVED REPORT FROM ADELINA HIDALGO ASSUMING CARE DURING LUNCH BREAK REPORT CALLED TO LETI HIDALGO PCU 3009 A TECH AND CHICK SEXER AWARE ECHO COMPLETED PREPARING PT FOR TRANSPORT TO FLOOR
[2023-06-11] MEDS ORDERED: LIDOcaine 1% (10mg/ml) 2ml vial ONE (14:06)
[2023-06-11] MEDS ORDERED: midazolam 1 mg/ML 2ml injection ONE (14:07)
[2023-06-11] MEDS ORDERED: fentaNYL/PF 50MCG/1 ML 2ML syringe ONE (14:07)
[2023-06-11] MEDS ORDERED: iohexol 350MG/ML 100ml bottle IV ONE ×2 (14:07→15:43)
[2023-06-11] MEDS ORDERED: verapamil 2.5 mg/ml inj IV ONE (14:07)
[2023-06-11] MEDS ORDERED: heparin 1,000unit/ml 10ml vial 10 ML ONE (14:07)
[2023-06-11] MEDS ORDERED: nitroGLYCERIN 500mcg/5mL D5W 5 ML IV ONE (14:08)
[2023-06-11] MEDS ORDERED: aspirin 325mg tablet ONE (15:45)
[2023-06-11] MEDS ORDERED: ticagrelor 90mg tablet ONE (15:46)
[2023-06-11] MEDS ORDERED: iohexol 350 MG/ML 50ML vial IV ONE (15:59)
[2023-06-11] MEDS ORDERED: TEST200V33 IM (17:09)
[2023-06-11] MEDS ORDERED: HYDROcodone/acetaminophen 10/325mg tab PO PRN (18:05)
[2023-06-11] MEDS ORDERED: HYDROcodone/acetaminophen 5mg/325mg tablet PO PRN (18:05)
[2023-06-11] MEDS ORDERED: haloperidol lactate 5mg/ml inj IM PRN (18:25)
[2023-06-11] MEDS ORDERED: haloperidol 5mg tablet PO PRN (18:25)
[2023-06-11] MEDS ORDERED: LORazepam 1 MG tablet PO PRN (18:25)
[2023-06-11] MEDS ORDERED: LORazepam 2 mg/ml vial IV PRN (18:25)
--- NOTE | 2023-06-11 18:41 | NUR ---
Patient in room PCU 3009. I have received report from Graciela (ROCKY) and had the opportunity to ask questions and assume patient care.
--- NOTE | 2023-06-11 21:17 | NUR ---
Aston PONCE advising that I am holding Metoprolol tonight d/t low HR. Asking for alternate BP med d/t bp 151/90
[2023-06-11] MEDS: ticagrelor 90mg tablet PO SCH (21:23)
[2023-06-11] MEDS ORDERED: metoprolol tartrate 25mg tablet PO ONE (22:30)
[2023-06-12 01:26] VITALS: BP 150/82; PULSE 61; RESP 14; TEMP 97.5; O2SAT 97
--- NOTE | 2023-06-12 02:53 | NUR ---
Per telegraph repeater technician, pt HR has dropped to HR 33 for two to three beats on two occasions around 0245 this morning. Other than that pt has maintained a HR averaging around 55 BPM, sometimes in the high 40's sometimes in the low 60's. Per pt report, this is lower than his normal heart rate. Pt reports no symptoms from this and pt has been hypertensive with BP's noted in Vital Signs.
[2023-06-12 06:24] LABS: BASOPHILS # (AUTO) 0.1 X10'3 (0-0.2); BASOPHILS % (AUTO) 0.8 % (0-1); EOSINOPHILS # (AUTO) 0.3 X10'3 (0-0.9); EOSINOPHILS % (AUTO) 3.5 % (0-6); HEMATOCRIT 47.8 % (42.0-52.0); LYMPHOCYTES # (AUTO) 1.8 X10'3 (1.1-4.8); LYMPHOCYTES % (AUTO) 24.1 % (21-51); MEAN CORPUSCULAR HEMOGLOBIN 36.8 PG (27.0-31.0); MEAN CORPUSCULAR HGB CONC 33.5 g/dL (33.0-36.5); MEAN CORPUSCULAR VOLUME 109.7 FL (78-98); MEAN PLATELET VOLUME 7.8 FL (7.4-10.4); MONOCYTES # (AUTO) 0.5 X10'3 (0-0.9); MONOCYTES % (AUTO) 7.2 % (2-12); NEUTROPHILS # (AUTO) 4.9 X10'3 (1.8-7.7); NEUTROPHILS % (AUTO) 64.4 % (42-75); PLATELET COUNT 227 X10'3 (140-440); RED BLOOD COUNT 4.36 X10'6 (4.70-6.10); RED CELL DISTRIBUTION WIDTH 14.4 % (11.5-14.5); WHITE BLOOD COUNT 7.5 X10'3 (4.5-11.0)
[2023-06-12] MEDS: K and/or MAG REPLACEMENT MC SCH (06:42)
[2023-06-12 06:47] LABS: ALANINE AMINOTRANSFERASE 73 U/L (12-78); ALBUMIN 3.3 G/DL (3.4-5.0); ALBUMIN/GLOBULIN RATIO 1.1 (1.1-1.5); ALKALINE PHOSPHATASE 72 IU/L (46-116); ANION GAP 4 (8-16); ASPARTATE AMINO TRANSFERASE 40 U/L (10-37); BILIRUBIN,TOTAL 0.6 MG/DL (0.1-1.0); BLOOD UREA NITROGEN 20 MG/DL (7-18); BUN/CREATININE RATIO 16.9 (10.0-20.0); CALCIUM 8.5 MG/DL (8.5-10.1); CHLORIDE 103 MMOL/L (99-107); CHOL/HDL RATIO 4.7 (0.00-4.99); CHOLESTEROL 185 MG/DL (0-200); CREATININE 1.18 MG/DL (0.60-1.10); GLUCOSE 104 MG/DL (70-104); HDL CHOLESTEROL 39 MG/DL (35-60); LDL CHOLESTEROL 123 MG/DL (50-100); MAGNESIUM 2.1 MG/DL (1.5-2.4); POTASSIUM 3.9 MMOL/L (3.5-5.1); SODIUM 138 MMOL/L (135-145); TOTAL CARBON DIOXIDE 31.4 MMOL/L (24-32); TOTAL PROTEIN 6.4 G/DL (6.4-8.2); TRIGLYCERIDES 123 MG/DL (20-135); eCRCL 65 ML/MIN; eGFR 63 ML/MIN
--- NOTE | 2023-06-12 06:47 | NUR ---
Problems reprioritized. Patient report given, questions answered & plan of care reviewed with Cordell ORTIZ).
[2023-06-12 07:02] VITALS: BP 139/97; PULSE 66; RESP 15; TEMP 97.1; O2SAT 96
[2023-06-12 07:27] LABS: HEMOGLOBIN A1C 4.9 % (4.5-6.2)
[2023-06-12] MEDS: dextroamphetamine/amphetamine 5mg tablet PO SCH (08:00)
[2023-06-12] MEDS ORDERED: aspirin 81mg, enteric-coated 1 TAB TABLET.DR PO SCH (08:00)
[2023-06-12] MEDS: metoprolol tartrate 50mg tablet PO SCH (08:00)
[2023-06-12] MEDS ORDERED: atorvastatin 20mg tablet PO SCH (08:00)
[2023-06-12] MEDS ORDERED: thiamine 100mg tablet PO SCH (08:00)
[2023-06-12] MEDS ORDERED: folic acid 1mg tablet PO SCH (08:00)
[2023-06-12 08:31] VITALS: RESP 16; O2SAT 95
[2023-06-12] MEDS: duloxetine 30mg CAPSULE.DR PO SCH (08:34)
[2023-06-12] MEDS: lisinopril 20mg tablet PO SCH (08:35)
[2023-06-12] MEDS: docusate sod 100mg capsule PO SCH (08:35)
[2023-06-12] MEDS: HYDROchlorothiazide 12.5mg capsule PO SCH (08:36)
[2023-06-12] MEDS: ticagrelor 90mg tablet PO SCH (08:36)
[2023-06-12 11:28] VITALS: PULSE 62; RESP 12
[2023-06-12] MEDS ORDERED: FOLI1TAB27 PO (12:19)
[2023-06-12] MEDS ORDERED: TICA90TA PO (12:19)
[2023-06-12] MEDS ORDERED: METO-395 PO (12:19)
[2023-06-12] MEDS ORDERED: ATOR20TA66 PO (12:19)
[2023-06-12] MEDS ORDERED: ASPI-1071 PO (12:19)
[2023-06-12] MEDS ORDERED: THIA100T70 PO (12:21)
[2023-06-12 12:27] VITALS: BP 162/102; PULSE 61; RESP 20; TEMP 97.6; O2SAT 97
== END 2023-06-12 13:59 | disposition home or self-care (01) | DRG 322 ==
LOC: ER 19:21 → ED HOLD 23:27 → PCU 3S 06-11 12:08
PROVIDERS: ADMIT Internal Medicine; ATTEND Family Medicine
PROC: 027034Z Dilation of Coronary Artery, One Artery with Drug-eluting Intraluminal Device, Percutaneous Approach (ICD-10-PCS; principal; 2023-06-11)
PROC: 4A023N7 Measurement of Cardiac Sampling and Pressure, Left Heart, Percutaneous Approach (ICD-10-PCS; 2023-06-11)
PROC: B2111ZZ Fluoroscopy of Multiple Coronary Arteries using Low Osmolar Contrast (ICD-10-PCS; 2023-06-11)
PROC: B32T1ZZ Computerized Tomography (CT Scan) of Left Pulmonary Artery using Low Osmolar Contrast (ICD-10-PCS; 2023-06-11)
PROC: B3201ZZ Computerized Tomography (CT Scan) of Thoracic Aorta using Low Osmolar Contrast (ICD-10-PCS; 2023-06-11)
PROC: B32S1ZZ Computerized Tomography (CT Scan) of Right Pulmonary Artery using Low Osmolar Contrast (ICD-10-PCS; 2023-06-11)
DX: I21.4 Non-ST elevation (NSTEMI) myocardial infarction (principal); E78.00 Pure hypercholesterolemia, unspecified; I10 Essential (primary) hypertension; G89.29 Other chronic pain; M54.9 Dorsalgia, unspecified; F12.10 Cannabis abuse, uncomplicated; G47.33 Obstructive sleep apnea (adult) (pediatric); Z79.899 Other long term (current) drug therapy; Z80.0 Family history of malignant neoplasm of digestive organs
CPT/HCPCS: 93306; 93458; 99285; C9600; 36415; 71045; 71275; 80053; 80061; 83036; 83735; 83880; 84484; 85008; 85025; 85610; 85730; 93005; 99152; 99153; A4615; A6258; C1725; C1751; C1769; C1874; C1894; G0378; J1644; J2250; J3010; J3490; J7030; Q9967

== ENCOUNTER → 2023-07-27 | Outpatient (CLI) | payer BC ==
[~2023-07-27] MED LIST changes: +AMPH20TA3 PO; +ASPI-1071 PO; +ATOR20TA66 PO; +FOLI1TAB27 PO; +METO-395 PO; +TEST200V33 IM; +THIA100T70 PO; +TICA90TA PO
[2023-07-27 09:44] LABS: BASOPHILS % (AUTO) 0.9 % (0-1); EOSINOPHILS # (AUTO) 0.2 X10'3 (0-0.9); EOSINOPHILS % (AUTO) 3.4 % (0-6); HEMATOCRIT 50.2 % (42.0-52.0); HEMOGLOBIN 17.3 g/dl (14.0-17.9); LYMPHOCYTES # (AUTO) 1.5 X10'3 (1.1-4.8); LYMPHOCYTES % (AUTO) 26.2 % (21-51); MEAN CORPUSCULAR HEMOGLOBIN 35.8 PG (27.0-31.0); MEAN CORPUSCULAR HGB CONC 34.6 g/dL (33.0-36.5); MEAN CORPUSCULAR VOLUME 103.6 FL (78-98); MEAN PLATELET VOLUME 7.8 FL (7.4-10.4); MONOCYTES # (AUTO) 0.2 X10'3 (0-0.9); MONOCYTES % (AUTO) 4.2 % (2-12); NEUTROPHILS # (AUTO) 3.8 X10'3 (1.8-7.7); NEUTROPHILS % (AUTO) 65.3 % (42-75); PLATELET COUNT 200 X10'3 (140-440); RED BLOOD COUNT 4.84 X10'6 (4.70-6.10); RED CELL DISTRIBUTION WIDTH 12.5 % (11.5-14.5); WHITE BLOOD COUNT 5.7 X10'3 (4.5-11.0)
[2023-07-27 09:59] LABS: ALANINE AMINOTRANSFERASE 39 U/L (12-78); ALBUMIN 3.7 G/DL (3.4-5.0); ALKALINE PHOSPHATASE 88 IU/L (46-116); ANION GAP 6 (8-16); ASPARTATE AMINO TRANSFERASE 26 U/L (10-37); BILIRUBIN,TOTAL 0.6 MG/DL (0.1-1.0); BLOOD UREA NITROGEN 15 MG/DL (7-18); BUN/CREATININE RATIO 15.6 (10.0-20.0); CALCIUM 8.6 MG/DL (8.5-10.1); CHLORIDE 102 MMOL/L (99-107); CHOL/HDL RATIO 3.2 (0.00-4.99); CHOLESTEROL 181 MG/DL (0-200); CREATININE 0.96 MG/DL (0.60-1.10); GLUCOSE 168 MG/DL (70-104); HDL CHOLESTEROL 56 MG/DL (35-60); LDL CHOLESTEROL 100 MG/DL (50-100); POTASSIUM 3.7 MMOL/L (3.5-5.1); SODIUM 137 MMOL/L (135-145); TOTAL CARBON DIOXIDE 29.4 MMOL/L (24-32); TOTAL PROTEIN 7.3 G/DL (6.4-8.2); TRIGLYCERIDES 216 MG/DL (20-135); eGFR 79 ML/MIN
== END | disposition home or self-care (01) ==
LOC: LAB 09:14
PROVIDERS: ATTEND Student in an Organized Health Care Education/Training Program
DX: I11.0 Hypertensive heart disease with heart failure (principal); I21.4 Non-ST elevation (NSTEMI) myocardial infarction; E78.5 Hyperlipidemia, unspecified; I25.10 Atherosclerotic heart disease of native coronary artery without angina pectoris; I50.9 Heart failure, unspecified
CPT/HCPCS: 36415; 80053; 80061; 85025

== ENCOUNTER 2023-10-26 07:58 | Outpatient (CLI) | payer BC ==
[2023-10-26 09:04] LABS: BILIRUBIN,URINE NEGATIVE (Neg); CLARITY,URINE CLEAR (Clear); COLOR,URINE YELLOW (Yellow); GLUCOSE, URINE NEGATIVE (Neg); KETONES,URINE TRACE mg/dl (Neg); LEUKOCYTE ESTERASE ,URINE NEGATIVE (Neg); NITRITES, URINE NEGATIVE (Neg); OCCULT BLOOD,URINE NEGATIVE (Neg); PH,URINE 5.5 (4.8-8.0); PROTEIN,URINE NEGATIVE (Neg); UROBILINOGEN,URINE 0.2 E.U/dL (0.2-1.0)
[2023-10-26 09:06] LABS: BASOPHILS # (AUTO) 0.1 X10'3 (0-0.2); BASOPHILS % (AUTO) 1.1 % (0-1); EOSINOPHILS # (AUTO) 0.3 X10'3 (0-0.9); HEMATOCRIT 41.1 % (42.0-52.0); HEMOGLOBIN 14.1 g/dl (14.0-17.9); LYMPHOCYTES # (AUTO) 1.8 X10'3 (1.1-4.8); LYMPHOCYTES % (AUTO) 28.4 % (21-51); MEAN CORPUSCULAR HEMOGLOBIN 35.8 PG (27.0-31.0); MEAN CORPUSCULAR HGB CONC 34.4 g/dL (33.0-36.5); MEAN PLATELET VOLUME 7.6 FL (7.4-10.4); MONOCYTES # (AUTO) 0.4 X10'3 (0-0.9); NEUTROPHILS # (AUTO) 3.8 X10'3 (1.8-7.7); NEUTROPHILS % (AUTO) 59.5 % (42-75); PLATELET COUNT 253 X10'3 (140-440); RED BLOOD COUNT 3.95 X10'6 (4.70-6.10); RED CELL DISTRIBUTION WIDTH 14.8 % (11.5-14.5); WHITE BLOOD COUNT 6.3 X10'3 (4.5-11.0)
[2023-10-26 09:14] LABS: UA COLLECTION TYPE CLN CATCH MIDSTREAM
[2023-10-26 10:23] LABS: ALBUMIN 4.2 G/DL (3.4-5.0); ALBUMIN/GLOBULIN RATIO 1.2 (1.1-1.5); ANION GAP 13 (8-16); ASPARTATE AMINO TRANSFERASE 26 U/L (10-37); BLOOD UREA NITROGEN 34 MG/DL (7-18); BUN/CREATININE RATIO 20.5 (10.0-20.0); CALCIUM 8.7 MG/DL (8.5-10.1); CHLORIDE 102 MMOL/L (99-107); CREATININE 1.66 MG/DL (0.60-1.10); GLUCOSE 127 MG/DL (70-104); POTASSIUM 4.7 MMOL/L (3.5-5.1); SODIUM 139 MMOL/L (135-145); TOTAL CARBON DIOXIDE 24.5 MMOL/L (24-32); TOTAL PROTEIN 7.8 G/DL (6.4-8.2); eGFR 42 ML/MIN
[2023-10-26 10:24] LABS: ALANINE AMINOTRANSFERASE 29 U/L (12-78); ALKALINE PHOSPHATASE 91 IU/L (46-116); CHOL/HDL RATIO 3.8 (0.00-4.99); CHOLESTEROL 180 MG/DL (0-200); FREE T4 (FREE THYROXINE) 0.74 NG/DL (0.73-1.40); HDL CHOLESTEROL 47 MG/DL (35-60); LDL CHOLESTEROL 104 MG/DL (50-100); THYROID STIMULATING HORMONE 4.52 ulU/ml (0.34-4.50); TRIGLYCERIDES 175 MG/DL (20-135)
== END 2023-10-26 23:59 | disposition home or self-care (01) ==
LOC: CARD DIAG 07:58
PROVIDERS: ATTEND Family Medicine
DX: Z00.01 Encounter for general adult medical examination with abnormal findings (principal); I08.8 Other rheumatic multiple valve diseases; E78.5 Hyperlipidemia, unspecified; I50.22 Chronic systolic (congestive) heart failure; R06.02 Shortness of breath; I25.10 Atherosclerotic heart disease of native coronary artery without angina pectoris
CPT/HCPCS: 36415; 71046; 80053; 80061; 81003; 82607; 84439; 84443; 85025; 85651; 93306

== ENCOUNTER 2024-07-08 08:14 | Outpatient (CLI) | payer BC ==
[~2024-07-08] VITALS: Ht 175.3 cm; Wt 103.0 kg
[~2024-07-08 08:14] MED LIST changes: -RAMI10CA69 PO; +RAMI10CA78 PO
[2024-07-08] MEDS ORDERED: normal saline 500ml IV soln 500 ML IV ONE (09:20)
[2024-07-08] MEDS ORDERED: nitroGLYCERIN 0.4mg SUBLingual tab SL PRN (09:20)
[2024-07-08] MEDS ORDERED: aminophylline 250mg/10ml inj. IV PRN (09:20)
[2024-07-08 09:53] VITALS: BP 133/93; PULSE 45; RESP 12; O2SAT 96
[2024-07-08] MEDS: regadenoson 0.4mg/5ml syringe IV ONE (09:58)
[2024-07-08 09:59] VITALS: BP 136/90; PULSE 48; RESP 16; O2SAT 96
[2024-07-08 10:00] VITALS: BP 136/90; PULSE 60; RESP 16; O2SAT 98
[2024-07-08 10:01] VITALS: BP 115/77; PULSE 57; RESP 12; O2SAT 99
[2024-07-08 10:02] VITALS: BP 125/77; PULSE 58; RESP 12; O2SAT 98
[2024-07-08 10:03] VITALS: BP 131/93; PULSE 54; RESP 12; O2SAT 96
== END 2024-07-08 23:59 | disposition home or self-care (01) ==
LOC: RAD 08:14
PROVIDERS: ATTEND Student in an Organized Health Care Education/Training Program
DX: I50.22 Chronic systolic (congestive) heart failure (principal); I21.4 Non-ST elevation (NSTEMI) myocardial infarction; I67.89 Other cerebrovascular disease; G45.9 Transient cerebral ischemic attack, unspecified; I42.0 Dilated cardiomyopathy; R06.02 Shortness of breath; R07.9 Chest pain, unspecified
CPT/HCPCS: 78452; 93017; A9500; J2785; J7040; J0280

== ENCOUNTER 2024-11-25 08:48 | Outpatient (CLI) | payer BC | END 2024-11-25 23:58 | disposition home or self-care (01) | LOC: VAS 08:48 | PROVIDERS: ATTEND Internal Medicine Interventional Cardiology | DX: I65.23 Occlusion and stenosis of bilateral carotid arteries (principal) | CPT/HCPCS: 93880 ==

== ENCOUNTER → 2025-01-04 | Outpatient (CLI) | payer BC ==
[2025-01-04 08:44] LABS: ALANINE AMINOTRANSFERASE 34 U/L (12-78); ALBUMIN 3.8 G/DL (3.4-5.0); ALBUMIN/GLOBULIN RATIO 1.1 (1.1-1.5); ALKALINE PHOSPHATASE 113 IU/L (46-116); ANION GAP 5 (8-16); ASPARTATE AMINO TRANSFERASE 23 U/L (10-37); BILIRUBIN,TOTAL 0.5 MG/DL (0.1-1.0); BLOOD UREA NITROGEN 23 MG/DL (7-18); BUN/CREATININE RATIO 20.9 (10.0-20.0); CHLORIDE 105 MMOL/L (99-107); CHOL/HDL RATIO 3.8 (0.00-4.99); CHOLESTEROL 184 MG/DL (0-200); GLUCOSE 127 MG/DL (70-104); HDL CHOLESTEROL 49 MG/DL (35-60); LDL CHOLESTEROL 106 MG/DL (50-100); POTASSIUM 4.5 MMOL/L (3.5-5.1); SODIUM 141 MMOL/L (135-145); TOTAL CARBON DIOXIDE 30.6 MMOL/L (24-32); TOTAL PROTEIN 7.4 G/DL (6.4-8.2); TRIGLYCERIDES 216 MG/DL (20-135); eGFR 67 ML/MIN
[2025-01-04 09:50] LABS: FREE T4 (FREE THYROXINE) 0.71 NG/DL (0.73-1.40); THYROID STIMULATING HORMONE 3.29 ulU/ml (0.34-4.50)
--- NOTE | 2025-01-04 10:06 | RADIOLOGY REPORT ---
EXAM: DI ELBOW,LIMITED (AP/LAT) CLINICAL INDICATION: SOB; R/O FOREIGN BODY TECHNIQUE: DI ELBOW,LIMITED (AP/LAT) Comparison: ANKLE,LIMITED (AP/LAT) on DOS: 02/12/22 FINDINGS/IMPRESSION: There is no evidence of acute fracture or dislocation. The alignment is anatomical. There is no radiopaque foreign body.
--- NOTE | 2025-01-04 10:08 | RADIOLOGY REPORT ---
DI CHEST,TWO VIEWS CLINICAL HISTORY: SOB; R/O FOREIGN BODY COMPARISON: DI CHEST,TWO VIEWS on DOS: 10/26/23 TECHNIQUE: Frontal and lateral view of the chest was obtained FINDINGS: Lines and Tubes: None Lungs: No focal consolidation. Pleura: No effusion. No pneumothorax. Cardiomediastinal contours: Unremarkable Bones: No acute osseous abnormality. IMPRESSION: No acute cardiopulmonary disease. No radiopaque foreign body
== END | disposition home or self-care (01) ==
LOC: LAB 07:50
PROVIDERS: ATTEND Internal Medicine Interventional Cardiology
DX: E78.5 Hyperlipidemia, unspecified (principal); R53.83 Other fatigue; Z00.01 Encounter for general adult medical examination with abnormal findings
CPT/HCPCS: 36415; 71046; 73070; 80053; 80061; 83690; 83880; 84439; 84443

== ENCOUNTER 2025-02-13 08:30 | Outpatient (CLI) | payer BC ==
--- NOTE | 2025-02-13 13:02 | RADIOLOGY REPORT ---
CLINICAL INDICATION: ARTHRITIS R SHOULDER COMPARISON: Radiographs of the right shoulder performed on 02/13/2025. TECHNIQUE: Multiplanar, multisequence MRI of the right shoulder was performed without contrast. Contrast: None FINDINGS: Glenohumeral joint: There is no fracture or bone marrow edema. Alignment is maintained. There is c hondral thinning in the humeral head with osteophytes. Subchondral cysts in the humeral head. Ther e is no joint effusion or synovitis. Acromioclavicular joint: The acromioclavicular joint is narrowed with capsular hypertrophy. Type 1 a cromion. Rotator cuff and bursae: There is supraspinatus tendinosis. There is a full-thickness tear measuring 5 mm. Infraspinatus tendinosis and partial-thickness articular surface tear. Subscapularis tendinosis and partial-thickness tear is noted involving the cranial most fibers. Teres minor tendon is intact. There is no regional muscle atrophy. There is fluid in the subacromial subdeltoid bursa. Biceps tendon and glenoid labrum: The long head biceps tendon is torn at the level of the bicipital groove. There is medial subluxation from the bicipital groove. Fluid is noted in the biceps tendon s julian. IMPRESSION: 1. Supraspinatus tendinosis and full-thickness tear measuring 5 mm. Infraspinatus tendinosis and par tial-thickness articular surface tear. Partial-thickness subscapularis tear. 2. Subacromial subdeltoid bursitis. 3. Acromioclavicular joint arthrosis. 4. Long head biceps tear and tenosynovitis. 5. Glenohumeral joint arthrosis.
== END 2025-02-13 23:59 | disposition home or self-care (01) ==
LOC: MRI02 08:30
PROVIDERS: ATTEND Family Medicine
DX: S46.111A Strain of muscle, fascia and tendon of long head of biceps, right arm, initial encounter (principal); M75.21 Bicipital tendinitis, right shoulder; M19.011 Primary osteoarthritis, right shoulder; S43.081A Other subluxation of right shoulder joint, initial encounter; X58.XXXA Exposure to other specified factors, initial encounter; M75.51 Bursitis of right shoulder; Y93.9 Activity, unspecified; Y92.89 Other specified places as the place of occurrence of the external cause; Y99.8 Other external cause status
CPT/HCPCS: 73221

== ENCOUNTER 2025-02-13 09:36 | Outpatient (CLI) | payer BC ==
--- NOTE | 2025-02-13 10:51 | RADIOLOGY REPORT ---
EXAM: DI SHOULDER, COMPLETE (MIN 2 VWS) CLINICAL INDICATION: RIGHT SHOULDER ARTHRITIS TECHNIQUE: DI SHOULDER, COMPLETE (MIN 2 VWS) Comparison: None FINDINGS/IMPRESSION: There is no evidence of acute fracture or dislocation. The visualized joint space is well maintained. Hill-Sachs deformity involving the right greater tuber osity. The alignment is anatomical. There is no radiopaque foreign body.
== END 2025-02-13 23:59 | disposition home or self-care (01) ==
LOC: RAD 09:36
PROVIDERS: ATTEND Family Medicine
DX: M19.011 Primary osteoarthritis, right shoulder (principal); R06.02 Shortness of breath
CPT/HCPCS: 73030

== ENCOUNTER 2025-08-01 08:19 | Day surgery (SDC) | payer BC ==
[2025-07-24 09:45] LABS: MEAN PLATELET VOLUME 7.1 FL (7.4-10.4); PRE OP HEMATOCRIT 46.2 % (42.0-52.0); PRE OP HEMOGLOBIN 15.6 g/dL (14.0-17.9); PRE OP PLATELET COUNT 254 X10'3 (140-440); PRE OP WHITE BLOOD COUNT 6.0 10'3 (4.8-10.8); RED CELL DISTRIBUTION WIDTH 13.8 % (11.5-14.5)
[2025-07-24 09:59] LABS: CREATININE 1.01 MG/DL (0.60-1.10); PRE OP ALT 23 U/L (30-65); PRE OP ANION GAP 5 (8-16); PRE OP AST 15 U/L (10-37); PRE OP BILIRUB, TOTAL 1.0 MG/DL (0.0-1.0); PRE OP GLUCOSE 102 MG/DL (70-104); PRE OP POTASSIUM 3.9 MMOL/L (3.4-5.1); PRE OP SODIUM 137 MMOL/L (135-145); TOTAL CARBON DIOXIDE 31.8 MMOL/L (24-32); eGFR 74 ML/MIN
[2025-08-01] VITALS (13 sets, daily range): BP systolic 130–159; BP diastolic 92–110; PULSE 58–73; RESP 13–19; TEMP 97.7; O2SAT 96–100
[~2025-08-01] VITALS: Ht 175.3 cm; Wt 95.3 kg
[2025-08-01] MEDS: ceFAZolin 2gm/dext,iso 50mL 50 ML IV ONE (05:30)
[~2025-08-01 08:19] MED LIST changes: -AMPH20TA3 PO; -ATOR20TA66 PO; +CHOL100046 PO; +CO Q-10; +DOCUMENT DATE & TIME OF BETA-BLOCKER PO ONE; -DULO-31 PO; +DULO30CA52 PO; -FOLI1TAB27 PO; -HYDR12.55 PO; -METO-395 PO; +METO50TA16 PO; -RAMI10CA78 PO; +ROSU40TA89 PO; +SACU1TAB4 PO; -TEST200V33 IM; -THIA100T70 PO; -TICA90TA PO; +oxyCODONE IR 5mg (immed. release) tablet PO PRN
[2025-08-01] MEDS: ringers solution, lacted 1,000 ML IV SCH (08:40)
[2025-08-01] MEDS ORDERED: rocuronium bromide 100mg/10ml (10mg/ml) injection IV ONE (10:25)
[2025-08-01] MEDS ORDERED: cloNIDine hcl/PF 100mcg/ml inj ONE (10:27)
[2025-08-01] MEDS ORDERED: fentaNYL/PF 50MCG/1 ML 2ML syringe ONE (10:28)
[2025-08-01] MEDS ORDERED: propofol inj 20 ML IV ONE (10:28)
[2025-08-01] MEDS ORDERED: midazolam 1 mg/ML 2ml injection ONE (10:28)
[2025-08-01] MEDS ORDERED: BUPIVAcaine 2.5mg/ml inj 50ml vial (contains preservative) ONE (10:49)
[2025-08-01] MEDS ORDERED: dexamethasone sod phosphate 4mg/ml inj. ONE (11:11)
[2025-08-01] MEDS ORDERED: fentaNYL/PF 50MCG/1 ML 2ML syringe IV PRN ×2 (11:25)
[2025-08-01] MEDS ORDERED: hydrALAZINE 20mg/ml inj. IV PRN (11:25)
[2025-08-01] MEDS ORDERED: HYDROmorphone/PF 0.2 MG/ML SYRINGE IV PRN (11:25)
[2025-08-01] MEDS ORDERED: acetaminophen 1,000mg/100ml IV 100 ML IV PRN (11:25)
[2025-08-01] MEDS ORDERED: ringers solution, lacted 1,000 ML IV SCH (11:25)
[2025-08-01] MEDS ORDERED: labetalol 20mg/4ml (5mg/ml) syringe IV PRN (11:25)
[2025-08-01] MEDS ORDERED: ondansetron/PF 4mg/2ml inj IV PRN (11:25)
--- NOTE | 2025-08-01 18:11 | OPERATIVE REPORT ---
Operative Report Operative Report OPERATIVE REPORT [facility] [address] [place] [address] Date of service: August 01, 2025 PREOPERATIVE DIAGNOSIS [id number] Complete rotator cuff tear or rupture of right shoulder, not specified as traumatic [id number] Bicipital tendinitis, right shoulder POSTOPERATIVE DIAGNOSIS [id number] Complete rotator cuff tear or rupture of right shoulder, not specified as traumatic [id number] Bicipital tendinitis, right shoulder Operation Performed [id number] Arthroscopy, Shoulder; with Rotator Cuff Repair with this modifier: [place] [id number] Arthroscopy, Shoulder; Distal Claviculectomy incuding Distal Articular [place] [id number] Arthroscopy, Shoulder; Biceps Tenodesis with this modifier: [place] [id number] Arthroscopy, Shoulder; Subacromial Decompression Procedure: Arthroscopic rotator cuff repair, arthroscopic acromioplasty, and arthroscopic resection distal clavicle, right shoulder. Arthroscopically assisted biceps tenodesis, right shoulder Surgeon: Dr. Zarate Instructional Resource Teacher: Padmini Vieira PA-C Anesthesiologist: Dr. Pandya Anesthesia: General anesthetic and interscalene block Complications: None Estimated Blood Loss: 50cc Implants: 2 [employer] Fiber Braulio medial row rotator cuff anchors were utilized, and 2 Swivel lock lateral row anchors were utilized. A distal biceps tenodesis kit from [employer] was also utilized. Indications: This patient has chronic shoulder pain despite extensive non- operative management and has findings typical of rotator cuff tendonitis, as well as a full-thickness tear of the rotator cuff; A/C joint arthritis, and chronic bicipital tenosynovitis. Indications for housekeeper/laundry assistant surgeon: A second set of skilled hands with specific orthopedic knowledge of the surgical procedure and orthopedic surgical techniques was necessary to accomplish this operation successfully, and with the least amount of morbidity for the patient. This facilitated operative exposure, manipulation and handling of tissues, placement of any implants, and accomplishment of wound closure. Findings: Arthroscopy of the glenohumeral joint showed the following: The glenoid articular surface has no significant arthritic changes. The humeral articular surface has no significant arthritic changes. The rotator cuff has a full-thickness tear of the supraspinatus with mild retraction. The subscapularis has a partial thickness tear at the superior aspect that did not require repair. The anterior labrum is normal. The superior labrum is normal. The biceps tendon is severely damaged with chronic synovitis and fraying. Arthroscopy of the subacromial space showed the following: There is extensive subacromial bursitis with a very thickened coracoacromial ligament, and an anterior acromial spur. The rotator cuff has a full thickness tear of the supraspinatus with retraction The A/C joint is very arthritic, with medial inferior acromial spurring, distal inferior clavicular spurring, and rough, irregular articular surfaces with loss of cartilage and exposed bone. Procedure: The risks, benefits, expected results, and possible complications of the planned procedure had been explained to the patient and informed consent obtained. The patient was taken to the operating room where a scalene block and general anesthetic were administered. The patient was placed in a semisitting position in the beachchair, and the right shoulder and arm were prepped and draped in the usual sterile fashion. A timeout was taken prior to surgery, confirming patient identification, operative side, operative site, planned procedure, administration of pre-operative antibiotics, site marking, and presence of all necessary implants and instruments. Arthroscopy was carried out through standard anterior and posterior portals with findings as noted above. The glenohumeral joint, the subacromial space, and the A/C joint were all thoroughly inspected. The biceps was resected off of the superior labrum utilizing a radiofrequency wand and allowed to retract of the shoulder.Next, the superior labrum was gently debrided with a shaver and radiofrequency wand via the anterior portal, to just smooth down the degenerated portions and the biceps stump. No repair was required. Following this, a lateral portal was created, and the scope switched to the subacromial space. A radiofrequency wand was introduced through the lateral portal and an arthroscopic acromioplasty carried out in the usual fashion. The thickened part of the coracoacromial ligament was resected, with the radiofrequency wand and the anterior undersurface of the acromion was smoothed with a 4 mm oval bur. Only 2-3 mm of bone was removed to just obtain a flat u ndersurface, and we tried to preserve the arch as best possible. The anterior acromial osteophyte was also removed and the medial acromial osteophyte was removed. Extensive removal of hypertrophic bursal tissue and inflamed synovial tissue was also accomplished. Next, the bur was utilized to resect the distal clavicular osteophytes and smooth the undersurface of the A/C joint. Anterior and posterior A/C joint portals were created, and a distal clavicle resection carried out arthroscopically. The radiofrequency wand was utilized to remove soft tissue, and a bur utilized to remove bone. 8-10 mm of joint space was created, just enough to give bleeding bone surfaces which were smooth and parallel. Next, attention was directed to the cuff. Ancillary cuff repair portals were made anterolaterally and posterolaterally The leading edge of the cuff was abraded with the shaver to remove nonviable tissue. The greater tuberosity was abraded with the bur to gain a bleeding bone surface for repair. We checked carefully to make sure the tissue could be mobilized out to the tuberosity without difficulty. 2 rotator cuff anchors were utilized along the articular surface at the margin of the tuberosity spaced evenly from anteriorly to posteriorly. Next, the [employer] suturing system was utilized to place each limb of each suture from each anchor up through the cuff tissue about a centimeter back from the leading margin, and equally spaced from posterior to anterior until all sutures were passed. Knots were then tied arthroscopically. Once the medial row repair was complete, 2 anchors were utilized for the lateral row repair. I selected various sutures from the medial row repair and passed two at a time through the anchors. The anchors were then impacted laterally in the proximal humerus, and then each limb of the sutures were tightened. This gave us a nice double row repair with overlapping sutures in a crisscross fashion over the top of the tissue, pressing it down over the greater tuberosity. Following this, a small incision was made in the mid upper arm medially, and we identified the deltoid and pectoralis tendons, and the biceps long head going up underneath the pectoralis. The biceps tendon was retrieved by pulling on it and bringing it distally delivering into the wound. We moved as far proximal as possible underneath the pectoralis tendon and place a drill pin through the humerus from anterior to posterior through both cortices. The tendon was then measured and an appropriate amount of tendon resected. #5 FiberWire fiberloop suture was used to do a traction stitch in the proximal end of the tendon with sutures coming out of the tip. The diameter of the tendon was measured and a 7.5 mm reamer was selected, and utilized to overream the proximal cortex of the humerus. Following this the initial drill pin was removed. The sutures from the biceps tendon were placed through the biceps Endobutton device from [employer], and this was passed through the humerus to exit the posterior cortex. The sutures were then pulled, turning Endobutton 90 and pulling the tendon of the biceps through the anterior cortical hole and into the medullary canal of the humerus. These sutures were pulled tightly and this brought the proximal tendon all the way into the bone. One of the sutures was then passed through a 7 mm PEEK interference fit screw. The screw was then placed into the tunnel and secured. The sutures from the tendon were then tied over the top of the screw securing the tendon quite nicely. All the portals were closed with 4-0 Monocryl and Steri-Strips. The arm incision was closed with 2-0 Vicryl for subcutaneous tissue, and 4-0 Monocryl for skin. A sterile dressing was applied, along with a sling, and the patient was returned to recovery room in satisfactory condition. Electronically Signed by: Samuel Zarate MD Doctor, Orthopedic Surgery Signed on: 08/01/2025 06:10 PM SAMUEL ZARATE MD Aug 01, 2025 18:11
[2025-08-01] MEDS ORDERED: sacubitril/valsartan 49mg-51mg tablet PO SCH (20:00)
[2025-08-02] MEDS ORDERED: cholecalciferol (vitamin D3) 1,000 unit (25mcg) tablet PO SCH (08:00)
[2025-08-02] MEDS ORDERED: duloxetine 30mg CAPSULE.DR PO SCH (08:00)
== END 2025-08-01 15:36 | disposition home or self-care (01) ==
LOC: PAS 08:19
PROVIDERS: ATTEND Orthopaedic Surgery
DX: M75.121 Complete rotator cuff tear or rupture of right shoulder, not specified as traumatic (principal); M75.21 Bicipital tendinitis, right shoulder; M75.51 Bursitis of right shoulder; M19.011 Primary osteoarthritis, right shoulder; M75.41 Impingement syndrome of right shoulder; M25.511 Pain in right shoulder; Z79.1 Long term (current) use of non-steroidal anti-inflammatories (NSAID); Z79.891 Long term (current) use of opiate analgesic; Z79.899 Other long term (current) drug therapy
CPT/HCPCS: 29824; 29826; 29827; 29828; 36415; 80053; 82948; 85025; C1713; J0690; J0735; J1100; J2250; J2704; J3010; J3490; J7120; Z7506; Z7508; Z7512; A4565; A4618; A6253; A6449; A7000